=== PATIENT | female | born 1985 | race Caucasian/White ===

== ENCOUNTER 2019-09-28 05:23 | Day surgery (SDC) | payer BC ==
[2019-09-28] VITALS (9 sets, daily range): BP systolic 97–106; BP diastolic 48–70; PULSE 58–88; RESP 16–28; Ht 165.1 cm; Wt 79.1 kg
[~2019-09-28] VITALS: Ht 165.1 cm; Wt 79.1 kg
[2019-09-28] MEDS ORDERED: DEXTROSE 5%-0.9% NACL 1,000 ML IV SCH (07:00)
[2019-09-28] MEDS ORDERED: CEFAZOLIN 2 GM/50 ML (PMX) 50 ML IVPB ONE (07:00)
[2019-09-28] MEDS ORDERED: DESFLURANE 15 MIN ONE (07:08)
[2019-09-28] MEDS ORDERED: LIDOCAINE 2% (SDV) 5 ML INJ ONE (07:08)
[2019-09-28] MEDS ORDERED: FENTAnyl 50 MCG/ML VIAL ONE (07:08)
[2019-09-28] MEDS ORDERED: ROCURONIUM 50 MG INJ ONE (07:08)
[2019-09-28] MEDS ORDERED: MIDAZOLAM 1 MG/ML 2 ML INJ ONE (07:08)
[2019-09-28] MEDS ORDERED: PROPOFOL 20 ML ONE (07:08)
[2019-09-28] MEDS ORDERED: BUPIVACAINE 0.5%/EPI (SDV) 30 ML INJ ONE (07:18)
[2019-09-28] MEDS ORDERED: DEXAMETHASONE 4 MG/ML 5 ML INJ ONE (07:54)
[2019-09-28] MEDS ORDERED: METOCLOPRAMIDE 10 MG INJ ONE (07:54)
[2019-09-28] MEDS ORDERED: ONDANSETRON 4 MG INJ ONE (07:54)
[2019-09-28] MEDS ORDERED: FAMOTIDINE 20 MG INJ ONE (07:54)
[2019-09-28] MEDS ORDERED: ONDANSETRON 4 MG INJ IV PRN (08:30)
[2019-09-28] MEDS ORDERED: HYDROmorphONE 1 MG/5 ML IV SYRINGE IV PRN ×3 (08:30)
[2019-09-28] MEDS ORDERED: OXYCODONE/ACETAMINOPHEN (5/325) TAB PO PRN ×2 (08:30)
[2019-09-28] MEDS ORDERED: FENTAnyl 50 MCG/ML VIAL IV PRN ×3 (08:30)
[2019-09-28] MEDS ORDERED: MEPERIDINE 25 MG INJ IV PRN (08:30)
[2019-09-28] MEDS ORDERED: NEOSTIGMINE 3 MG/3 ML SYRINGE ONE (08:40)
[2019-09-28] MEDS ORDERED: GLYCOPYRROLATE 0.4 MG INJ ONE (08:40)
[2019-09-28] MEDS ORDERED: KETOROLAC 30 MG INJ IV PRN (09:00)
== END 2019-09-28 10:50 | disposition home or self-care (01) ==
LOC: SDS 05:23
PROVIDERS: ATTEND Obstetrics & Gynecology
DX: N93.9 Abnormal uterine and vaginal bleeding, unspecified (principal)
CPT/HCPCS: 49329; 81001; 85025; 85610; 85730; 93005; J0690; J1100; J2175; J2250; J2405; J2710; J2765; J3010; Z7512; Z7610